=== PATIENT | male | born 1995 | race Caucasian/White ===

== ENCOUNTER 2023-10-30 20:14 | Emergency (ER) | payer OTHER, SELFPAY ==
[2023-10-30 20:22] VITALS: BP 159/81; PULSE 85; RESP 18; TEMP 36.6; O2SAT 98; BMI 36.8
--- NOTE | 2023-10-30 20:22 | ED.GIBLEED ---
HPI - GI Bleed General Chief complaint: General Medical Stated complaint: bloody stools Time Seen by Provider: 10/30/23 21:03 Source: patient Mode of arrival: ambulatory History of Present Illness HPI Narrative: 28-year-old male with history 4-5 bowel movements a day for most of his life, denies any food allergies or recent change in food consumption to cause any GI distress, no use of NSAIDs, no family history of colon CA or IBD, patient is experiencing noted bloody stools, denies straining, states that these stools occur 2/5 of the times that he is having bowel movements a day. Denies any associated abdominal pain with these events but became concerned because his next appointment with his primary care doctors in December. Related Data Allergies Allergy/AdvReac Type Severity Reaction Status Date / Time No Known Allergies Allergy Verified 10/30/23 20:24 Review of Systems Review of Systems: Pertinent positives and negatives as stated in [facility] Past Medical History Source: nursing notes reviewed Social History Social History Do you have a plan to hurt others: No Plan Physical Exam Vital Signs: Vital Signs: Last Vital Signs Temp 98 F 10/30/23 20:22 Pulse 85 10/30/23 20:22 Resp 18 10/30/23 20:22 BP 159/81 H 10/30/23 20:22 Pulse Ox 98 10/30/23 20:22 O2 Del Method Room Air 10/30/23 20:22 BMI result Body Mass Index 36.8 VITAL SIGNS: Reviewed. GENERAL: Well developed, well nourished, in no acute distress. HEAD: Normocephalic/atraumatic EYES: PERRLA, EOMI LUNGS: Normal breath sounds. No adventitious sounds or accessory muscle use. SpO2<98> CARDIOVASCULAR: Regular rate and rhythm without noted murmurs ABDOMEN: Soft, non-tender, non-distended with bowel sounds. ANORECTAL: Noninflamed hemorrhoids 6 o'clock position, no obvious thrombosed hemorrhoid, no internal hemorrhoids appreciated, no fissures, there is pink tinged mucus on finger without gross hematochezia or melena noted, no masses appreciated, good rectal tone MUSCULOSKELETAL: No tenderness, deformities, or effusions noted on gross inspection. EXTREMITIES: No cyanosis, clubbing or edema. SKIN: Inspection of the skin reveals no rashes NEUROLOGIC: Alert and oriented x 4. Strength and sensation to light touch were grossly intact x 4. Course Course Course Narrative: This is a rapid medical exam. Defer additional HPI, ROS, PE to primary provider. 28 male with no known medical history here with complaints of abdominal pain, blood stools x 1 month. Denies family history of inflammatory bowel disease. No nausea, vomiting, fevers. Has appt with PCP in December. Has not been seen by GI as he has tried calling but needs referral. Will obtain labs, occult stool VSS Medical Decision Making Medical Decision Making MDM Narrative: 28-year-old male with history and clinical presentation, DDX: Rectal bleeding secondary to food allergy, ABD, NSAID use, AVM, hemorrhoids secondary to constipation I reviewed all investigations and hematologic indices are grossly within normal limits without evidence of anemia/thrombocytopenia and no leukocytosis. Coagulation studies are within normal limits. Chemistry indices are grossly within normal limits without evidence of RANJEET/electrolyte or liver enzyme derangements, creatinine is noted to be upper normal limits, CRP-0.59. Guaiac is positive, there is no evidence of gross rectal hemorrhage, no abdominal discomfort I do not suspect ischemic or mesenteric sources, I do feel that patient is otherwise hemodynamically stable for follow-up with Gastroenterology. Patient provided with referral to see Gastroenterology, instructed to call 1st thing in the morning and provided with return precautions. Differential Diagnosis Differential Diagnoses: The differential diagnosis associated with the presentation includes Please see the discussion above Admission/Observation Consideration of admission/observation: Escalation of care including admission/observation considered Please see the discussion above Lab Data [facility] Lab Attestation statement: I reviewed the patient's lab results. Please see the discussion above 10/30/23 20:49 10/30/23 20:49 Labs: Lab Results 10/30/23 10/30/23 Range/Units 20:49 21:24 WBC 9.2 (4.8-10.8) X10*3/uL RBC 4.98 (4.60-5.80) X10*6/uL Hgb 14.5 (14.0-18.0) g/dl Hct 42.2 (42.0-52.0) % MCV 84.7 (80.0-98.0) fL MCH 29.1 (27.0-33.0) pg MCHC 34.4 (31.0-36.0) g/dl RDW 12.6 (11.0-16.0) % Plt Count 295 (160-400) X10*3/uL MPV 10.0 (9.4-12.4) fL Immature Gran % (Auto) 0.2 (0.0-0.4) % Neut % (Auto) 62.5 (45-73) % Lymph % (Auto) 27.8 (20-40) % [place] % (Auto) 7.3 (2-11) % Eos % (Auto) 1.7 (0-4) % Baso % (Auto) 0.5 (0-2) % Lymph # (Auto) 2.6 (1.2-4.9) X10*3/uL [place] # (Auto) 0.7 (0.1-1.2) X10*3/uL Eos # (Auto) 0.2 (0.0-0.4) X10*3/uL Baso # (Auto) 0.1 (0.0-0.2) X10*3/uL Abs Immat Gran (auto) 0.02 (0.00-0.03) X10*3/uL Absolute Neuts (auto) 5.7 (2.0-8.3) x10*3/uL Absolute Nucleated RBC 0.000 (0.0-0.012) X10*3/uL Nucleated RBC % (auto) 0.0 (0.0-0.2) /100WBC ESR 2 (0-15) MM/HR PT 13.0 (11.1-13.3) SEC INR 1.1 (0.9-1.1) Sodium 141 (135-145) mmol/L Potassium 3.6 (3.3-5.1) mmol/L Chloride 105 (96-108) mmol/L Carbon Dioxide 28 (22-29) mmol/L Anion Gap 12 (12-20) BUN 10 (9-16) mg/dL Creatinine 1.23 (0.5-1.4) mg/dL Estim Creat Clear Calc 105.0 Estimated GFR > 60 Random Glucose 86 (60-115) mg/dL Calcium 9.4 (8.4-10.2) mg/dL Total Bilirubin 0.3 (0.0-1.0) mg/dL Direct Bilirubin 0.2 (0.0-0.5) mg/dL AST 22 (5-37) U/L ALT 37 (0-40) U/L Alkaline Phosphatase 54 (39-117) U/L C-Reactive Protein 0.59 H (< or = 0.50) mg/dL Total Protein 7.6 (6.5-8.0) g/dL Albumin 4.6 (3.5-5.0) g/dL Hold Red Top See Note Stool Occult Blood POSITIVE (NEGATIVE) Critical Care Time Critical Care Time Critical Care Time: Yes Total Critical Care Time: 30 Attestation: I personally attest to this time spent taking care of the patient. Discharge Plan Discharge Clinical Impression: Rectal bleeding, Bleeding hemorrhoids Patient Disposition: Home, Self-Care Instructions: Hemorrhoids (ED), Sitz Bath (DC), Gastrointestinal Bleeding (ED) Additional Instructions: 1. Recommend avoiding all NSAIDs and aspirin containing substances. Keep a food journal. 2. Also recommend [id number] stool softener such as Colace, drink plenty of water and call Gastroenterology 1st thing in the morning to set up an appointment for re-evaluation further outpatient management. 3. Please follow-up with your primary care doctor as well. Return to the ER if you develop uncontrolled rectal bleeding, especially if associated with abdominal pain, dizziness. Referrals: Lizeth Palencia MD [Physician] -
[2023-10-30 20:54] LABS: MANUAL DIFF FLAG NO
[2023-10-30 20:55] LABS: Basophils Absolute Auto 0.1 X10*3/uL (0.0-0.2); Basophils Percent Auto 0.5 % (0-2); Eosinophils Absolute Auto 0.2 X10*3/uL (0.0-0.4); Eosinophils Percent Auto 1.7 % (0-4); Hematocrit 42.2 % (42.0-52.0); Hemoglobin 14.5 g/dl (14.0-18.0); Imm Gran Abs Auto 0.02 X10*3/uL (0.00-0.03); Imm Gran Pct Auto 0.2 % (0.0-0.4); Lymphocytes Absolute Auto 2.6 X10*3/uL (1.2-4.9); Lymphocytes Percent Auto 27.8 % (20-40); Mean Corpuscular HGB Conc 34.4 g/dl (31.0-36.0); Mean Corpuscular Hemoglobin 29.1 pg (27.0-33.0); Mean Corpuscular Volume 84.7 fL (80.0-98.0); Monocytes Absolute Auto 0.7 X10*3/uL (0.1-1.2); Monocytes Percent Auto 7.3 % (2-11); Neutrophils Absolute Auto 5.7 x10*3/uL (2.0-8.3); Neutrophils Percent Auto 62.5 % (45-73); Platelet Count 295 X10*3/uL (160-400); Red Blood Count 4.98 X10*6/uL (4.60-5.80); Red Cell Distribution Width 12.6 % (11.0-16.0); White Blood Count 9.2 X10*3/uL (4.8-10.8)
[2023-10-30 21:00] LABS: INTERNATIONAL NORM RATIO 1.1 (0.9-1.1)
[2023-10-30 21:13] LABS: Alanine Aminotransferase 37 U/L (0-40); Albumin Level 4.6 g/dL (3.5-5.0); Alkaline Phosphatase 54 U/L (39-117); Anion Gap 12 (12-20); Aspartate Amino Transferase 22 U/L (5-37); Bilirubin Direct 0.2 mg/dL (0.0-0.5); Bilirubin Total 0.3 mg/dL (0.0-1.0); Blood Urea Nitrogen 10 mg/dL (9-16); C Reactive Protein 0.59 mg/dL (< or = 0.50); Calcium 9.4 mg/dL (8.4-10.2); Carbon Dioxide 28 mmol/L (22-29); Chloride 105 mmol/L (96-108); Estimated Glomerular Filt Rate > 60; Glucose Random 86 mg/dL (60-115); Potassium 3.6 mmol/L (3.3-5.1); Sodium 141 mmol/L (135-145); Total Protein 7.6 g/dL (6.5-8.0)
--- NOTE | 2023-10-30 21:27 | PC.NURSE ---
Retal exam performed by Dr. Aquino with this card writer hand as a sexer. Stool sample obtained, placed on stool occult card and, and sent to the lab. Pt tolerated well.
[2023-10-30 21:30] LABS: OBS Int Ctl Valid YES; OBS1 POSITIVE (NEGATIVE)
[2023-10-30 21:32] LABS: Erythrocyte Sedimentation Rate 2 MM/HR (0-15)
[2023-10-30 21:59] VITALS: BP 125/70; PULSE 72; RESP 14; TEMP 37.2; O2SAT 97
== END 2023-10-30 22:00 | disposition home or self-care (01) ==
PROVIDERS: Nurse Practitioner Family; Emergency Provider Student in an Organized Health Care Education/Training Program
DX: K62.5 Hemorrhage of anus and rectum (principal); K64.9 Unspecified hemorrhoids
CPT/HCPCS: 36415; 80048; 80076; 82272; 85025; 85610; 85652; 86140; 99283

== ENCOUNTER 2025-05-12 13:02 | Emergency (ER) | payer OTHER, SELFPAY ==
--- NOTE | ~2025-05-12 | XR_ITS ---
EXAMINATION: XR CHEST CLINICAL INFORMATION: chest pain COMPARISON: None available. TECHNIQUE: 2 views of the chest were obtained. FINDINGS: The cardiomediastinal silhouette is within normal limits. The lungs are well expanded. There is no focal consolidation, edema, or effusion. Peribronchial thickening in the right lower lung. No pneumothorax. No acute osseous abnormality. XR/XR chest 2V IMPRESSION: Peribronchial thickening in the right lower lung, can be seen with small airway disease. No focal consolidation. Electronically signed by: Adryan Evans MD 05/12/2025 01:58 PM EST
--- NOTE | 2025-05-12 13:04 | ECG_ITS ---
Test Reason : syncope Blood Pressure : */* mmHG Vent. Rate : 107 BPM Atrial Rate : 107 BPM P-R Int : 200 ms QRS Dur : 86 ms QT Int : 326 ms P-R-T Axes : 55 23 29 degrees QTcB Int : 435 ms Sinus tachycardia Otherwise normal ECG No previous ECGs available Referred By: Generic ED Physician Electronically Signed By: Winston Solis
[2025-05-12 13:06] VITALS: BP 136/83; PULSE 109; RESP 20; TEMP 36.7; O2SAT 96
[2025-05-12 13:10] VITALS: BP 129/67; PULSE 130; O2SAT 95; BMI 39.7
--- NOTE | 2025-05-12 13:33 | ED_ITS ---
HPI - General Adult General Chief complaint: General Medical Stated complaint: dizziness, syncopy hr 140 Time Seen by Provider: 05/12/25 13:10 Source: patient, EMS, RN notes reviewed and old records reviewed Mode of arrival: EMS Limitations: no limitations History of Present Illness ED Provider: Matty HPI narrative: Patient is a 29-year-old male with no reported past medical history presenting to the emergency department with complaint of near syncopal episode while at work prior to arrival. Will states that over the weekend he had symptoms of vir al gastroenteritis with nausea, vomiting and diarrhea. States he was able to eat lunch today but has only had 1 meal in the past 3 days. Denies fevers. Also reports 1 2nd episode of left sided rib pain which has since subsided. Given 1 L of normal saline by EMS prior to arrival. MD complaint: near syncope Related Data Previous Rx's ?Medication ?Instructions ?Recorded ondansetron 4 mg disintegrating 4 mg PO Q8H PRN nausea and 05/12/25 tablet vomiting #10 tabs Allergies Allergy/AdvReac Type Severity Reaction Status Date / Time No Known Allergies Allergy Verified 05/12/25 13:19 Review of Systems 2 Review of Systems: As per HPI Yes all other systems are reviewed and are negative Constitutional: Constitutional: Reports as per HPI [facility] Social History Social History Advance Directives: No Advance Directives Information Provided: No Physical Exam ED Vital Signs: Vital Signs - 24 hr 05/12/25 13:06 Temperature 98.1 F Pulse Rate 109 H Respiratory Rate 20 Blood Pressure 136/83 Pulse Oximetry 96 Oxygen Delivery Method Room Air BMI result Body Mass Index 39.7 Vital signs have been reviewed and appear to be correct. Blood pressure normal. Heart rate normal. Respiratory rate normal. Temperature normal. Oxygen saturation normal. Const General: cooperative, healthy appearing and no acute distress Orientation/consciousness: oriented to person, oriented to place, oriented to time and patient oriented x3 Limitations: no limitations HENMT Head: Yes normocephalic and Yes atraumatic Ears: external ears normal General nose exam: Normal external nose present Face and sinus: Yes face symmetric Mouth: oropharynx normal and moist mucous membranes Throat: Yes uvula midline Eyes Pupils: Equal, round and reactive pupils present Neck Neck: Yes normal visual inspection and Yes supple Resp Effort & Inspection: normal respiratory effort and able to speak in complete sentences Auscultation: clear to auscultation bilaterally Cardio Rate: regular rate Rhythm: regular rhythm Heart sounds: S1 normal heart sound present and S2 normal heart sound present GI Palpation (GI): Soft to palpation and nontender Auscultation: normoactive bowel sounds General: Yes no CVA tenderness Back/Spine/Pelvis Back: no CVA tenderness Skin General skin exam: elasticity normal and turgor normal Neuro General: oriented to person, oriented to place, oriented to time, patient oriented x3, moves all extremities, no focal motor deficits and CN's II-XI intact bilaterally Cranial nerves: Yes Equal, round and reactive pupils present Cognition (Neuro): normal cognition Extrem General: Yes full ROM, Yes no pedal edema and Yes no calf tenderness Psych Mental Status: mental status grossly normal Affect: normal affect Thought process: Normal thought process present Medications Administered Discontinued Medications Generic Name Dose Route Start Last Admin Trade Name Freq PRN Reason Stop Dose Admin Sodium Chloride 1,000 mls @ 999 mls/hr 05/12/25 13:45 05/12/25 13:41 Ns IV 05/12/25 14:45 999 mls/hr .Q1H1M [facility] Administration Medical Decision Making Medical Decision Making MDM Narrative: Patient is a 29-year-old male with no reported past medical history presenting to the emergency department with complaint of near syncopal episode while at work prior to arrival. On exam patient is awake, A+Ox3, VS WNL, afebrile, normal neurological exam without focal deficits, physical exam findings as above. Given reported symptoms and physical exam findings, initial differential includes but is not limited to dehydration, electrolyte abnormality, arrhythmia. Do not suspect ACS. Labs unremarkable, no significant electrolyte abnormalities or evidence of RANJEET, negative troponin. EKG shows sinus tachycardia. X-ray chest notable for peribronchial thickening to right lower lobe, no evidence of pneumonia. My interpretation is in agreement with the radiologist's interpretation. Patient reports improvement in symptoms after IV fluids. Feel symptoms likely due to dehydration from recent gastroenteritis. Patient able to tolerate p.o. fluids in the emergency department. Will discharge home with prescription for Zofran, advised adequate fluid intake, adequate rest, will provide work note. Return precautions discussed. Patient verbalized understanding of and agreement with plan. Differential Diagnosis Differential Diagnoses: The differential diagnosis associated with the presentation includes As per [facility] Admission/Observation Consideration of admission/observation: Escalation of care including admission/observation considered Patient would have been admitted to the hospital and transferred to appropriate facility had their clinical presentation warranted hospital admission. Lab Data [facility] Lab Attestation statement: I reviewed the patient's lab results. as per [facility] 05/12/25 13:41 05/12/25 13:41 Labs: Lab Results 05/12/25 Range/Units 13:41 WBC 8.9 (4.8-10.8) X10*3/uL RBC 5.30 (4.60-5.80) X10*6/uL Hgb 15.4 (14.0-18.0) g/dl Hct 45.1 (42.0-52.0) % MCV 85.1 (80.0-98.0) fL MCH 29.1 (27.0-33.0) pg MCHC 34.1 (31.0-36.0) g/dl RDW 12.8 (11.0-16.0) % Plt Count 286 (160-400) X10*3/uL MPV 9.9 (9.4-12.4) fL Immature Gran % (Auto) 0.2 (0.0-0.4) % Neut % (Auto) 77.9 H (45-73) % Lymph % (Auto) 12.6 L (20-40) % [place] % (Auto) 5.6 (2-11) % Eos % (Auto) 2.9 (0-4) % Baso % (Auto) 0.8 (0-2) % Lymph # (Auto) 1.1 L (1.2-4.9) X10*3/uL [place] # (Auto) 0.5 (0.1-1.2) X10*3/uL Eos # (Auto) 0.3 (0.0-0.4) X10*3/uL Baso # (Auto) 0.1 (0.0-0.2) X10*3/uL Abs Immat Gran (auto) 0.02 (0.00-0.03) X10*3/uL Absolute Neuts (auto) 6.9 (2.0-8.3) x10*3/uL Absolute Nucleated RBC 0.000 (0.0-0.012) X10*3/uL Nucleated RBC % (auto) 0.0 (0.0-0.2) /100WBC PT 15.0 H (10.9-12.4) SEC INR 1.3 H (0.9-1.1) Sodium 141 (135-145) mmol/L Potassium 4.0 (3.3-5.1) mmol/L Chloride 105 (96-108) mmol/L Carbon Dioxide 29 (22-29) mmol/L Anion Gap 11 L (12-20) BUN 14 (9-16) mg/dL Creatinine 1.29 (0.5-1.4) mg/dL Estim Creat Clear Calc 100.8 Estimated GFR > 60 Random Glucose 95 (60-115) mg/dL Calcium 9.0 (8.4-10.2) mg/dL Magnesium 1.8 (1.6-2.6) mg/dL Total Bilirubin 0.8 (0.0-1.0) mg/dL AST 21 (5-37) U/L ALT 26 (0-40) U/L Alkaline Phosphatase 54 (39-117) U/L Troponin I High Sens < 2.7 (<3.5-35.0) ng/L Total Protein 7.5 (6.5-8.0) g/dL Albumin 4.6 (3.5-5.0) g/dL Independent Interpretation I performed an independent interpretation of an: EKG (sinus tachycardia, rate 107, normal AR interval and QTc) and Plain X-Ray Interpretation: Chest x-ray shows peribronchial thickening and right lower lobe, no evidence of pneumonia Radiology Impression Discussion of test interpretation with radiology: I have reviewed the radiologist's reading. Radiologist Impression: XR/XR chest 2V IMPRESSION: Peribronchial thickening in the right lower lung, can be seen with small airway disease. No focal consolidation. External Record Review External record reviewed: Inpatient record, Office record and Outpatient record Prescription Management I considered prescription management with: Other Discharge Plan Discharge Clinical Impression: Acute dehydration, Near syncope Patient Disposition: Home, Self-Care Instructions: Dehydration (DC), Near Syncope (ED) Additional Instructions: You were evaluated in the emergency department today for near-syncope. Your evaluation did not show evidence of conditions requiring emergent medical treatment at this time. You were able to tolerate fluids by mouth in the emergency department. It is important that you continue to drink plenty of fluids once you return home, especially fluids with electrolytes such as Pedialyte, Gatorade, Powerade, etc.. You have been sent a prescription for Zofran for nausea. Follow up with your primary care provider as needed. Return to the emergency department if you develop ongoing dizziness or lightheadedness, chest pain or palpitations, shortness of breath or difficulty breathing, fever 100.4? F or greater, fainting or any other new or concerning symptoms. Prescriptions: New ondansetron 4 mg tablet,disintegrating 4 mg PO Q8H PRN (Reason: nausea and vomiting) Qty: 10 0RF Stand Alone Forms: Work/School Release Print Language: [place]
--- NOTE | 2025-05-12 13:41 | PC.NURSE ---
MARILYNN Starr at bedside for initial evaluation. 20g IV access in right hand. NS 0.9% 1L infusing per provider orders. Labs drawn and sent for analysis, results pending. Care ongoing by this RN.
[2025-05-12 13:47] LABS: MANUAL DIFF FLAG NO
[2025-05-12 13:48] LABS: Hematocrit 45.1 % (42.0-52.0); Hemoglobin 15.4 g/dl (14.0-18.0); Imm Gran Abs Auto 0.02 X10*3/uL (0.00-0.03); Imm Gran Pct Auto 0.2 % (0.0-0.4); Lymphocytes Absolute Auto 1.1 X10*3/uL (1.2-4.9); Mean Corpuscular HGB Conc 34.1 g/dl (31.0-36.0); Mean Corpuscular Hemoglobin 29.1 pg (27.0-33.0); Mean Corpuscular Volume 85.1 fL (80.0-98.0); NRBC Abs Auto 0.000 X10*3/uL (0.0-0.012); NRBC Pct Auto 0.0 /100WBC (0.0-0.2); Platelet Count 286 X10*3/uL (160-400); Red Blood Count 5.30 X10*6/uL (4.60-5.80); White Blood Count 8.9 X10*3/uL (4.8-10.8)
[2025-05-12 14:00] LABS: INTERNATIONAL NORM RATIO 1.3 (0.9-1.1); Prothrombin Time 15.0 SEC (10.9-12.4)
[2025-05-12 14:05] LABS: Alanine Aminotransferase 26 U/L (0-40); Albumin Level 4.6 g/dL (3.5-5.0); Alkaline Phosphatase 54 U/L (39-117); Anion Gap 11 (12-20); Aspartate Amino Transferase 21 U/L (5-37); Blood Urea Nitrogen 14 mg/dL (9-16); Calcium 9.0 mg/dL (8.4-10.2); Carbon Dioxide 29 mmol/L (22-29); Chloride 105 mmol/L (96-108); Creatinine Clr Calc Pharmacy 100.8; Estimated Glomerular Filt Rate > 60; Magnesium 1.8 mg/dL (1.6-2.6); Potassium 4.0 mmol/L (3.3-5.1); Sodium 141 mmol/L (135-145); Total Protein 7.5 g/dL (6.5-8.0)
[2025-05-12 14:13] LABS: Troponin-I High Sensitivity < 2.7 ng/L (<3.5-35.0)
[2025-05-12 16:31] VITALS: BP 128/80; PULSE 69; RESP 22; O2SAT 95
[2025-05-12 16:41] VITALS: BP 128/80; PULSE 68; RESP 16; TEMP 36.6; O2SAT 98
[2025-05-12 16:42] VITALS: BP 128/80; PULSE 68; RESP 16; TEMP 36.6; O2SAT 98
== END 2025-05-12 16:43 | disposition home or self-care (01) ==
PROVIDERS: Registered Nurse Emergency; Emergency Provider Emergency Medicine
DX: E86.0 Dehydration (principal); R55 Syncope and collapse
CPT/HCPCS: 36415; 71046; 80053; 83735; 84484; 85025; 85610; 93005; 96360; 99284

== ENCOUNTER → 2025-05-12 13:04 | Outpatient (BNV) | payer OTHER, SELFPAY | PROVIDERS: Emergency Provider Emergency Medicine; Visit Provider Internal Medicine Cardiovascular Disease | DX: R00.0 Tachycardia, unspecified (principal) | CPT/HCPCS: 93010 ==

== ENCOUNTER → 2025-05-12 13:33 | Outpatient (BNV) | payer OTHER, SELFPAY | PROVIDERS: Emergency Provider Emergency Medicine; Visit Provider Radiology Diagnostic Ultrasound | DX: R07.9 Chest pain, unspecified (principal); J98.09 Other diseases of bronchus, not elsewhere classified | CPT/HCPCS: 71046 ==